=== PATIENT | female | born 1945 | race Caucasian/White ===

== ENCOUNTER → 2020-09-10 13:08 | Outpatient (CLI) | payer MEDICARE, OTHER, SELFPAY ==
[2020-09-10 13:51] LABS: COVID19 -Nasal RAPID Negative (Negative)
== END ==
PROVIDERS: Family Provider Family Medicine; PCP Student in an Organized Health Care Education/Training Program; Referring Provider Internal Medicine; Visit Provider Internal Medicine
DX: Z20.822 Contact with and (suspected) exposure to COVID-19 (principal)
CPT/HCPCS: 87635; C9803

== ENCOUNTER → 2020-09-10 14:20 | Outpatient (CLI) | payer MEDICARE, OTHER, SELFPAY ==
--- NOTE | 2020-09-15 08:56 | PM.PFT.1 ---
Pulmonary Function Test Referral & Results Date Patient Seen: 09/10/20 Requesting provider: Garret Vazquez Results: The spirometry demonstrates an FVC of 2.16 L which is 95% of predicted. The FEV1 was measured at 1.64 L which is 97% of predicted. The FEV1/FVC ratio was 76 which is 101% of predicted. Following the administration of bronchodilator there was no appreciable change to above normal numbers. Lung volumes show an SVC of 2.77 L which is 118% of predicted. The diffusing capacity was measured at 16.72 which is 88% of predicted. The maximum voluntary ventilation was very minimally reduced Interpretation: This study demonstrates probably normal pulmonary function.
== END ==
PROVIDERS: Family Provider Family Medicine; PCP Student in an Organized Health Care Education/Training Program; Referring Provider Student in an Organized Health Care Education/Training Program; Visit Provider Student in an Organized Health Care Education/Training Program
DX: R06.02 Shortness of breath (principal); J98.8 Other specified respiratory disorders; Z20.822 Contact with and (suspected) exposure to COVID-19
CPT/HCPCS: 87635; 94060; 94726; 94729; C9803

== ENCOUNTER 2021-06-09 11:15 | Outpatient (CLI) | payer MEDICARE, OTHER, SELFPAY ==
[2021-06-09] VITALS (8 sets, daily range): BP systolic 144–213; BP diastolic 80–108; PULSE 88–94; RESP 10–24; TEMP 37.1; O2SAT 94–100
--- NOTE | 2021-06-09 11:18 | DI.RAD.S_ITS ---
PROCEDURE: PAIN L INTERLAMINAR/CAUDAL INJ INDICATIONS: SPONDYLOSIS COMPARISON: [facility], RG, MRI L-SPINE W/O CONTRAST, 03/22/2021, 12:43. FINDINGS: Fluoroscopic spot filming was performed to verify placement of a spinal needle at the L3-L4 level, as labeled on the films. Appropriate location of the needle tip was confirmed by injection of iodinated contrast. IMPRESSION: Intraprocedural examination within normal limits. Dictated by: Edmund Metzger M.D. on 06/09/2021 at 14:46 Approved by: Edmund Metzger M.D. on 06/09/2021 at 14:46
[2021-06-09] MEDS: fentaNYL 100 MCG/2 ML INJ 50 MCG IV (14:05)
[2021-06-09] MEDS: MIDAZOLAM 5 MG/5 ML VIAL IV (14:10)
[2021-06-09] MEDS: BETAMETHASONE 30 MG/5 ML MDV 12 MG INJ (14:12)
[2021-06-09] MEDS: IOPAMIDOL 15 ML VIAL 3 ML INJ (14:12)
[2021-06-09] MEDS: BUPIVACAINE 0.25% (PF) VIAL 2 ML INJ (14:12)
[2021-06-09] MEDS: DEXAMETHASONE 10 MG/ML VIAL 20 MG INJ (14:13)
--- NOTE | 2021-06-09 14:22 | P.PCN_ITS ---
Date/Time/Diagnoses Date of procedure: 06/09/21 Time of procedure: 14:22 Pre-procedure diagnosis: 1. HNP WITH RADICULAR FEATURES, 2. MULTILEVEL CENTRAL STENOSIS, Post-procedure diagnosis: same Procedure Notes Procedure: 1. FLUOROSCOPICALLY GUIDED CONTRAST CONTROLLED INTERLAMINAR EPIDURAL STEROID INJECTION - L3/4 Indications: Micki is referred by Dr. Vazquez for treatment of Bilateral Foraminal Stenosis L>R LE symptoms. Physician: Taj Allen Total Fluoroscopy time (seconds): 8 Total sedation minutes: 10 Complications: none Procedure in detail & Post-procedure care: FINDINGS Multilevel Central Spinal Stenosis with Nerve Root Compression DESCRIPTION OF PROCEDURE Fluoroscopically guided, contrast-controlled L3/4 translaminar epidural steroid injection. Following review of allergy and review of potential side effects and complications, including, but not necessarily limited to, infection, allergic reaction, local tissue breakdown, temporary as well as permanent nerve injury, paralysis, stroke and possible , the patient indicated that the patient understood and agreed to proceed. An informed consent document was signed by the patient, witnessed by a nurse, and placed in the patient's chart. Additionally, other treatment options including modalities, medications, and physical therapy were reviewed with the patient. After review of previous anaesthesic history and IV conscious sedation the patient was deemed safe to proceed with today?s procedure with IV conscious sedation as ASA class II designation. Safety time-out was performed to confirm patient ID, procedure to be performed and site of procedure. IV sedation was accomplished with a combination of 3mg of Versed and 50mcg of Fentanyl was administered by the RN after DO order, titrated to patient comfort during the course of the procedure while the patient remained responsive to all verbal commands. In the prone position, following sterile prep and drape of the lumbar region, the L3/4 translaminar space was identified fluoroscopically. The skin was anesthetized via a 25-gauge, 1.5-inch needle with 1% lidocaine solution. At this point, a 22-gauge short bevel spinal needle was atraumatically introduced and advanced under fluoroscopic guidance into the region of the L3/4 translaminar space. Depth was confirmed on lateral view. Radiological data, including multiple fluoroscopic views of the lumbar spine, reveal a spinal needle at the L3/4 translaminar space. Lateral views then show placement of the needle in the epidural space. Subsequent views show contrast material flowing superiorly and inferiorly in the epidural space. No vascular or intrathecal uptake is observed. At this point, using loss of resistance technique with saline and air, the epidural space was entered. This was confirmed following negative aspiration with injection of approximately 1.5 cc of Isovue 200, showing excellent epidural flow without vascular or intrathecal uptake. At this point, 1cc of 1% lidocaine solution combined with 3cc or 20mg of dexamethasone and 6mg of betamethasone was injected without incident. The patient tolerated the procedure well without signs or symptoms of complications prior to transfer to the recovery area continued monitoring without incident. The patient was then transferred to the recovery area where they were observed for an appropriate period of time after the injection. The patient reported a VAS score of 6 prior to the procedure and a post- procedure VAS of 0. POST OP INSTRUCTIONS The patient was provided a Pain Log to continue to record their response to the target-specific procedure prior to follow-up visit with their referring physician. Additionally, specific post-injection care instructions and a contact number to our office were provided if concerns arise regarding possible complications associated with the procedure are suspected.
== END 2021-06-09 14:59 | disposition home or self-care (01) ==
LOC: RAD 11:18
PROVIDERS: Family Provider Family Medicine; PCP Student in an Organized Health Care Education/Training Program; Referring Provider Physical Medicine & Rehabilitation; Visit Provider Physical Medicine & Rehabilitation
DX: M51.16 Intervertebral disc disorders with radiculopathy, lumbar region (principal); M48.061 Spinal stenosis, lumbar region without neurogenic claudication
CPT/HCPCS: 62323; 99152; J0702; J1100; J2250; J3010

== ENCOUNTER → 2023-08-27 12:24 | Outpatient (CLI) | payer MEDICARE, OTHER, SELFPAY ==
--- NOTE | 2023-08-27 12:26 | DI.RAD.S_ITS ---
PROCEDURE: XR LUMBAR SPINE MIN 4V INDICATIONS: BACK PAIN TECHNIQUE: 5 views of the lumbar spine were acquired, including bilateral oblique views. COMPARISON: Lumbar spine radiographs 09/10/2014. FINDINGS: Bones: 5 nonrib-bearing vertebrae are present. Status post posterior fixation of L4 to L5 with intervertebral disc spacer. Hardware appears to be in appropriate position. Grade 1 anterolisthesis of L3 on L4. No acute vertebral body compression fractures. No suspicious bony lesions. Soft tissues: Overlying bowel gas pattern is normal. No suspicious soft tissue calcifications. Oblique images: No pars defects. IMPRESSION: No acute osseous abnormality. Status post L4-L5 posterior fixation with intervertebral disc spacer without evidence of complication. Grade 1 anterolisthesis of L3 on L4. If symptoms persist with conservative management, consider cross-sectional imaging such as CT or MRI. Dictated by: So Hagan M.D. on 08/27/2023 at 14:17 Approved by: So Hagan M.D. on 08/27/2023 at 14:25
== END ==
PROVIDERS: Family Provider Family Medicine; PCP Student in an Organized Health Care Education/Training Program; Referring Provider Physical Medicine & Rehabilitation; Visit Provider Physical Medicine & Rehabilitation
DX: M43.16 Spondylolisthesis, lumbar region (principal); M54.17 Radiculopathy, lumbosacral region; M54.16 Radiculopathy, lumbar region; N18.9 Chronic kidney disease, unspecified; M96.1 Postlaminectomy syndrome, not elsewhere classified; M54.9 Dorsalgia, unspecified; Z98.1 Arthrodesis status
CPT/HCPCS: 72110; 99214

== ENCOUNTER 2023-09-11 14:04 | Outpatient (CLI) | payer MEDICARE, OTHER, SELFPAY ==
[2023-09-11] VITALS (12 sets, daily range): BP systolic 145–181; BP diastolic 74–92; PULSE 82–89; RESP 14–20; TEMP 36.3; O2SAT 93–99
--- NOTE | 2023-09-11 15:00 | DI.RAD.S_ITS ---
PROCEDURE: PAIN L INTERLAMINAR/CAUDAL INJ INDICATIONS: SPONDYLOSIS COMPARISON: [facility], XA, PAIN L INTERLAMINAR/CAUDAL INJ, 06/09/2021, 15:08. FINDINGS: Fluoroscopic spot filming was performed to verify placement of spinal needles overlying L3-4 level(s), as labeled on the films. Appropriate location(s) of the needle tip(s) was confirmed by injection of iodinated contrast. IMPRESSION: Needle and contrast placement as above. Dictated by: Freda Boland M.D. on 09/11/2023 at 18:27 Approved by: Freda Boland M.D. on 09/11/2023 at 18:27
[2023-09-11] MEDS: MIDAZOLAM 2 MG/2 ML VIAL IV (15:45)
[2023-09-11] MEDS: iopamidoL 15 ML VIAL 3 ML INJ (15:49)
[2023-09-11] MEDS: DEXAMETHASONE 10 MG/ML VIAL INJ (15:49)
[2023-09-11] MEDS: BETAMETHASONE 30 MG/5 ML MDV 6 MG INJ (15:50)
[2023-09-11] MEDS: BUPIVACAINE 0.25% (PF) VIAL 2 ML INJ (15:50)
[2023-09-11] MEDS: MIDAZOLAM 2 MG/2 ML VIAL 1 MG IV (16:03)
--- NOTE | 2023-09-11 16:12 | P.PCN_ITS ---
Date/Time/Diagnoses Date of procedure: 09/11/23 Time of procedure: 16:12 Pre-procedure diagnosis: 1. HNP WITH RADICULAR FEATURES, 2. MULTILEVEL CENTRAL STENOSIS, Post-procedure diagnosis: same Procedure Notes Procedure: 1. FLUOROSCOPICALLY GUIDED CONTRAST CONTROLLED INTERLAMINAR EPIDURAL STEROID INJECTION - L3/4 Indications: Micki is referred by Dr. Vazquez for treatment of Bilateral Foraminal Stenosis L>R LE symptoms. Physician: Taj Allen Total Fluoroscopy time (seconds): 13 Total sedation minutes: 22 Complications: none Procedure in detail & Post-procedure care: FINDINGS Multilevel Central Spinal Stenosis with Nerve Root Compression DESCRIPTION OF PROCEDURE Fluoroscopically guided, contrast-controlled L3/4 translaminar epidural steroid injection. Following review of allergy and review of potential side effects and complications, including, but not necessarily limited to, infection, allergic reaction, local tissue breakdown, temporary as well as permanent nerve injury, paralysis, stroke and possible , the patient indicated that the patient understood and agreed to proceed. An informed consent document was signed by the patient, witnessed by a nurse, and placed in the patient's chart. Additionally, other treatment options including modalities, medications, and physical therapy were reviewed with the patient. After review of previous anaesthesic history and IV conscious sedation the patient was deemed safe to proceed with today?s procedure with IV conscious sedation as ASA class II designation. Safety time-out was performed to confirm patient ID, procedure to be performed and site of procedure. IV sedation was accomplished with a combination of 3mg of Versed was administered by the RN after DO order, titrated to patient comfort during the course of the procedure while the patient remained responsive to all verbal commands. In the prone position, following sterile prep and drape of the lumbar region, the L3/4 translaminar space was identified fluoroscopically. The skin was anesthetized via a 25-gauge, 1.5-inch needle with 1% lidocaine solution. At this point, a 22-gauge short bevel spinal needle was atraumatically introduced and advanced under fluoroscopic guidance into the region of the L3/4 translaminar space. Depth was confirmed on lateral view. Radiological data, including multiple fluoroscopic views of the lumbar spine, reveal a spinal needle at the L3/4 translaminar space. Lateral views then show placement of the needle in the epidural space. Subsequent views show contrast material flowing superiorly and inferiorly in the epidural space. No vascular or intrathecal uptake is observed. At this point, using loss of resistance technique with saline and air, the epidural space was entered. This was confirmed following negative aspiration with injection of approximately 1.5 cc of Isovue 200, showing excellent epidural flow without vascular or intrathecal uptake. At this point, 1cc of 1% lidocaine solution combined with 2cc or 10mg of dexamethasone and 6mg of betamethasone was injected without incident. The patient tolerated the procedure well without signs or symptoms of complications prior to transfer to the recovery area continued monitoring without incident. The patient was then transferred to the recovery area where they were observed for an appropriate period of time after the injection. The patient reported a VAS score of 6 prior to the procedure and a post- procedure VAS of 0. POST OP INSTRUCTIONS The patient was provided a Pain Log to continue to record their response to the target-specific procedure prior to follow-up visit with their referring physician. Additionally, specific post-injection care instructions and a contact number to our office were provided if concerns arise regarding possible complications associated with the procedure are suspected.
== END 2023-09-11 16:45 | disposition home or self-care (01) ==
PROVIDERS: Family Provider Family Medicine; PCP Student in an Organized Health Care Education/Training Program; Referring Provider Physical Medicine & Rehabilitation; Visit Provider Physical Medicine & Rehabilitation
DX: M51.16 Intervertebral disc disorders with radiculopathy, lumbar region (principal); M48.061 Spinal stenosis, lumbar region without neurogenic claudication
CPT/HCPCS: 62323; 99152; J0702; J1100; J2250; J3490

== ENCOUNTER 2024-01-08 12:02 | Outpatient (CLI) | payer MEDICARE, OTHER, SELFPAY ==
[2024-01-08] VITALS (10 sets, daily range): BP systolic 160–209; BP diastolic 69–98; PULSE 68–84; RESP 15–20; TEMP 36.1; O2SAT 95–100
--- NOTE | 2024-01-08 13:00 | DI.RAD.S_ITS ---
PROCEDURE: PAIN SI JOINT INJECTION WENDY INDICATIONS: Bilateral SI joint injection COMPARISON: [facility], HIP 2V RIGHT, 06/03/2010, 9:51. CR, XR LUMBAR SPINE MIN 4V, 08/27/2023, 12:33. FINDINGS: Fluoroscopic spot filming was performed to verify placement of spinal needles at the SI joints level(s), as labeled on the films. Appropriate location(s) of the needle tip(s) was confirmed by injection of iodinated contrast. IMPRESSION: Fluoroscopy for pain management. Dictated by: Manuel French M.D. on 01/08/2024 at 14:52 Approved by: Manuel French M.D. on 01/08/2024 at 14:54
[2024-01-08] MEDS: MIDAZOLAM 2 MG/2 ML VIAL IV (13:23)
[2024-01-08] MEDS: iopamidoL 15 ML VIAL 3 ML INJ (13:26)
[2024-01-08] MEDS: BETAMETHASONE 30 MG/5 ML MDV 12 MG INJ (13:26)
[2024-01-08] MEDS: BUPIVACAINE 0.5% (PF) 10 ML VIAL 2 ML INJ (13:26)
[2024-01-08] MEDS: fentaNYL 100 MCG/2 ML INJ 50 MCG IV (13:33)
--- NOTE | 2024-01-08 13:43 | PM.PROC.IR.1 ---
Date/Time/Diagnoses Date of procedure: 01/08/24 Time of procedure: 13:43 Pre-procedure diagnosis: Sacroiliac joint pain/DJD Post-procedure diagnosis: same Procedure Notes Procedure: Fluoroscopic guided contrast controlled bilateral sacroiliac joint injection Indications: Micki is referred by Dr. Vazquez for treatment of bilateral sacroiliac joint DJD Physician: Taj Allen Total Fluoroscopy time (seconds): 18 Total sedation minutes: 18 Complications: none Procedure in detail & Post-procedure care: Description of procedure Fluoroscopic guided, contrast controlled bilateral sacroiliac joint injection Following review of allergies and review of potential side effects and complications, including, but not necessarily limited to, infection, allergic reaction, local tissue breakdown, temporary as well as permanent nerve injury, paralysis, stroke and possible , the patient indicated that they understood and agreed to proceed. An informed consent was signed by the patient, witnessed by a nurse, and placed in the patient's chart. Additionally, other treatment options including modalities, medications, and physical therapy were reviewed with the patient. After review of previous anaesthesic history and IV conscious sedation the patient was deemed safe to proceed with today?s procedure with IV conscious sedation as ASA class II designation. Safety time-out was performed to confirm patient ID, procedure to be performed and site of procedure. IV sedation was accomplished with a combination of 2mg Versed and 50mcg of Fentanyl were administered by the RN after DO order, titrated to patient comfort during the course of the procedure while the patient remained responsive to all verbal commands In the prone position following sterile prep and drape of the pelvic region, the hyper lucency on in the inferior aspect of the sacroiliac joint was identified fluoroscopically the skin was anesthetized be a 25 gauge 1.5 inch needle with approximately 2cc of 1% lidocaine solution. At this point, a 22 gauge 3 in spinal needle was atraumatically introduced and advanced under fluoroscopic guidance into the inferior aspect of the right sacroiliac joint. Following negative aspiration, approximately 0.3cc of Isovue-300 was injected confirming intra-articular placement without vascular uptake. Radiographic data, including multiple fluoroscopic views of the pelvis, reveals a spinal needle in the sacroiliac joint hyper lucent zone. Subsequent view show flow contrast tear superiorly and inferiorly within the joint capsule without vascular intrathecal uptake. At this point a total of 1cc of 0.5% Marcaine was combined with 1cc of 6mg of betamethasone was injected without incident. Attention was then refocused the left sacroiliac joint where the procedure was replicated. The procedure tolerated the procedure well without signs or symptoms of complications prior to transfer to the recovery area continued monitoring without incident. The patient was then transferred to the recovery area with a bur observed for an appropriate time after the injection. The patient reverted a vas score of 7 prior to the procedure and post-procedure vas of 1. Postop instructions The patient was provided with a pain like to continue to record the patient's response to the target specific procedure prior to the patient's follow-up visit with the referring physician. Additionally, specific post injection care instructions and a contact number to our office were provided if concerns arise regarding the possible complications associated with procedure are suspected.
--- NOTE | 2024-01-09 14:50 | PC.NURSE ---
[id number] Patient post-procedural call made. Patient states that she is doing well and has no questions or concerns at this time. Patient advised to call the clinic if anything changes or if she has any questions or concerns.
== END 2024-01-08 14:10 | disposition home or self-care (01) ==
LOC: RAD 12:03
PROVIDERS: Family Provider Family Medicine; PCP Student in an Organized Health Care Education/Training Program; Referring Provider Physical Medicine & Rehabilitation; Visit Provider Physical Medicine & Rehabilitation
DX: M53.3 Sacrococcygeal disorders, not elsewhere classified (principal); M46.1 Sacroiliitis, not elsewhere classified
CPT/HCPCS: 27096; 77002; 99152; J0702; J2250; J3010